=== PATIENT | female | born 1995 | race Caucasian/White ===

== ENCOUNTER 2024-01-21 23:09 | Emergency (ER) | payer OTHER ==
[2024-01-21 23:20] VITALS: TEMP 98.3; BMI 35.1
[2024-01-22] MEDS ORDERED: FAMOTIDINE 20 MG/50 ML IVPB 20 MG/50 ML MG IVPB ONE (00:03)
[2024-01-22] MEDS: SODIUM CHLORIDE 0.9% 500 ML INFUS.BAG IV ONE (00:12)
[2024-01-22] MEDS: FAMOTIDINE 20 MG/50 ML IVPB 20 MG/50 ML MG IVPB ONE (00:12)
[2024-01-22 00:25] VITALS: BP 107/65; PULSE 82; RESP 18
== END 2024-01-22 01:21 | disposition home or self-care (01) ==
LOC: JER 23:09
PROC: 3E033GC Introduction of Other Therapeutic Substance into Peripheral Vein, Percutaneous Approach (ICD-10-PCS; principal; 2024-01-21)
DX: T78.40XA Allergy, unspecified, initial encounter (principal); L29.9 Pruritus, unspecified; R19.7 Diarrhea, unspecified
CPT/HCPCS: 99284-25

== ENCOUNTER 2024-06-15 14:07 | Emergency (ER) | payer OTHER ==
[2024-06-15 14:23] VITALS: BP 113/74; PULSE 86; RESP 16; TEMP 98.7; BMI 36.9
[2024-06-15] MEDS ORDERED: FAMOTIDINE 10 MG TABLET ONE (15:16)
[2024-06-15] MEDS ORDERED: MAG HYDROX/AL HYDROX/SIMETH 30 ML UNIT-DOSE CUP ONE (15:17)
[2024-06-15] MEDS ORDERED: ONDANSETRON *ODT* 4 MG TABLET ONE (15:18)
[2024-06-15] MEDS: FAMOTIDINE 10 MG TABLET PO ONE (15:29)
[2024-06-15] MEDS: ONDANSETRON *ODT* 4 MG TABLET SL ONE (15:29)
[2024-06-15] MEDS: MAG HYDROX/AL HYDROX/SIMETH 30 ML UNIT-DOSE CUP PO ONE (15:30)
[2024-06-15 15:37] LABS: PH,URINE 5.5 (5.0-8.0); URINE APPEARANCE CLEAR; URINE BILIRUBIN NEGATIVE (NEGATIVE); URINE COLOR YELLOW; URINE GLUCOSE (UA) NEGATIVE (NEGATIVE); URINE KETONE NEGATIVE (NEGATIVE); URINE LEUK ESTERASE NEGATIVE (NEGATIVE); URINE NITRITE NEGATIVE (NEGATIVE); URINE PROTEIN NEGATIVE (NEGATIVE); URINE UROBILINOGEN 0.2 mg/dL (0.2-1.0)
[2024-06-15 16:14] LABS: BASO % 0.8 % (0-2.0); EOS % 2.6 % (0-4.5); HEMATOCRIT 37.6 % (32.4-45.2); HEMOGLOBIN 12.3 GM/dL (10.7-15.3); LYMPH % 17.7 % (8-40); MCH 26.2 pg (25.7-33.7); MCHC 32.6 g/dl (32.0-36.0); MEAN CELL VOLUME 80.4 fl (80-96); MEAN PLT VOLUME 7.4 fl (7.5-11.1); MONO % 8.8 % (3.8-10.2); NEUT % 70.1 % (42.8-82.8); PLATELET COUNT 330 10^3/uL (134-434); RBC 4.68 M/mm3 (3.60-5.2); RDW 14.8 % (11.6-15.6); WHITE BLOOD COUNT 12.9 K/mm3 (4.0-10.0)
[2024-06-15 16:28] LABS: POTASSIUM 3.9 mmol/L (3.5-5.1)
[2024-06-15 16:30] LABS: ALBUMIN 3.6 g/dl (3.4-5.0); BLOOD UREA NITROGEN 9.3 mg/dL (7-18)
[2024-06-15 16:34] LABS: CREATININE 0.7 mg/dL (0.55-1.3)
[2024-06-15 16:35] LABS: BILIRUBIN,TOTAL 0.3 mg/dL (0.2-1); TOT PROT 7.2 g/dl (6.4-8.2)
== END 2024-06-15 19:29 | disposition home or self-care (01) ==
LOC: JER 14:07
DX: R10.32 Left lower quadrant pain (principal); R11.0 Nausea; R19.7 Diarrhea, unspecified; R50.9 Fever, unspecified
CPT/HCPCS: 36415; 74177-TC; 80053; 81003; 83690; 84703; 85025; 87086; 99285-25; Q9967